=== PATIENT | male | born 1990 | race Caucasian/White ===

== ENCOUNTER 2022-05-22 10:33 | Emergency (ER) | payer SELFPAY ==
[2022-05-22] MEDS ORDERED: NORCO 5-325 TA1 EACH PO (13:00)
== END 2022-05-22 13:13 | disposition home or self-care (01) ==
LOC: FER 10:33
DX: S06.0X0A Concussion without loss of consciousness, initial encounter (principal); S00.03XA Contusion of scalp, initial encounter; Y04.0XXA Assault by unarmed brawl or fight, initial encounter; Y92.89 Other specified places as the place of occurrence of the external cause; Y99.0 Civilian activity done for income or pay
CPT/HCPCS: 70450